=== PATIENT | female | born 1960 | race Two or more races ===

== ENCOUNTER 2025-01-01 06:04 | Emergency (ER) | payer MEDICARE, OTHER ==
[~2025-01-01] VITALS: Ht 162.6 cm; Wt 68.0 kg
[2025-01-01 06:05] VITALS: BP 105/65; PULSE 78; RESP 24; O2SAT 98
--- NOTE | 2025-01-03 16:16 | ECG ---
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
== END 2025-01-01 06:14 | disposition left against medical advice (07) ==
LOC: ER 06:04 → EDBD 06:04 → ER 06:14
DX: R53.1 Weakness (principal); Z53.1 Procedure and treatment not carried out because of patient's decision for reasons of belief and group pressure
CPT/HCPCS: 93005